=== PATIENT | female | born 1975 | race Caucasian/White ===

== ENCOUNTER 2016-12-17 08:01 | Day surgery (SDC) | payer OTHER ==
[~2016-12-17 08:01] MED LIST: LIDOCAINE W/ SODIUM BICARB 0.5 ML SYR ONE; Lactated Ringers 1,000 ML PRIMARY IV ONE
--- NOTE | 2016-12-17 09:29 | GEN.OPNOTE ---
Colonoscopy Procedure Note Surgery Date: 12/17/16 Preoperative Diagnosis: Bright red blood per rectum. Colon cancer screening. Postoperative Diagnosis: Same. Procedure: Complete colonoscopy with anoscopy. Surgeon: Sarath Copeland MD Anesthesia Provider: Lina Bianchi CRNA Anesthesia Type: MAC Indications: See preoperative diagnosis. Findings: Prep : [Excellent] Cecum : [Normal] Ascending : [Normal] Transverse : [Normal] Sigmoid : [Normal] Rectum : [Normal, minimal hemorrhoidal tissue] Digital Rectal Exam : [No significant perianal pathology] Anoscopy:[No significant internal hemorrhoids.] A lubricated flexible colonoscope was inserted and passed to the blind end of the cecum. The ileocecal valve and blind end of the cecum were clearly seen. Prep was excellent. Air was aspirated as the scope was withdrawn. The entire colonoscopy was normal without polyp, tumor, neoplastic mass, infectious or inflammatory process. There was only minimal nonbleeding internal hemorrhoidal tissue. The scope was withdrawn completing the procedure. Patient tolerated the procedure well without complication. She was taken to outpatient surgery in stable condition. Patient will follow-up with my office on an as-needed basis. It is recommended she undergo colonoscopy in 10 years. She can use 1% hydrocortisone for any flares of bleeding. We could prescribe suppositories but at this time there is no indication for them.
[2016-12-17 09:55] VITALS: RESP 14; TEMP 98.2
== END 2016-12-17 09:57 | disposition home or self-care (01) ==
LOC: SDSC 08:01
PROVIDERS: ATTEND Surgery
DX: K62.5 Hemorrhage of anus and rectum (principal); Z12.11 Encounter for screening for malignant neoplasm of colon
CPT/HCPCS: 45378; 84703; J2704; J7120